=== PATIENT | female | born 2000 | race Caucasian/White ===

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

== ENCOUNTER → 2022-02-14 | Outpatient (CLI) | payer BC, MEDICAID ==
[~2022-02-14] MED LIST changes: -FOLI1TAB24 PO; +FOLI1TAB33 PO; -OLAN15TA19 PO; +OLAN15TA35 PO
--- NOTE | 2022-02-14 11:32 | Diagnostic Imaging Report ---
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 EXAM: MRI of the cervical spine without contrast. Sequences include sagittal T2, sagittal T1, sagittal T2 fat-sat, sagittal STIR, and axial T2. COMPARISON: None. FINDINGS: There is significant CSF flow and motion artifact, limiting evaluation of the cervical spinal cord on all sequences. Unable to exclude subtle abnormality of the cord given the artifact. There are no gross cord expansile changes seen. Limited visualization of the posterior fossa is unremarkable. Cervical spine has normal alignment with no acute fracture or dislocation. The vertebral body heights and intervertebral disk heights are maintained. There is no significant central canal or neural foramen narrowing. There is no significant paraspinal soft tissue abnormality. IMPRESSION: 1: There is significant limited evaluation of the cervical spinal cord and spine given the motion artifact and CSF flow artifact. Repeat MRI cervical spine imaging with and without contrast is suggested once the patient is able to hold still for the exam. Also comparison to prior imaging, if available, is suggested. 2: The remainder of the cervical spine is unremarkable, as visualized. Dictated by: Dictated on workstation # [id number]
== END ==
LOC: RAD 10:15
PROVIDERS: ATTEND Family Medicine
DX: D49.7 Neoplasm of unspecified behavior of endocrine glands and other parts of nervous system (principal)
CPT/HCPCS: 72141

== ENCOUNTER 2022-09-26 16:21 | Emergency (ER) | payer MEDICAID ==
[~2022-09-26] VITALS: Ht 165 cm; Wt 76.0 kg
--- NOTE | 2022-09-26 16:46 | ED Lower Extremity ---
General Chief Complaint: Laceration Stated Complaint: LEFT LEG LAC Nursing Triage Note: ARRIVED VIA AMB WITH A LACERATION TO LEFT LOWER LEG. STATES SHE HIT IT ON A BED FRAME. Source: patient Exam Limitations: no limitations History of Present Illness Date Seen by Provider: Sep 26, 2022 Time Seen by Provider: 16:44 Initial Comments Patient is a 22-year-old female presents ED with a laceration to her left lower leg. This occurred around 330 today. She states she cut her leg on her roommates bed frame. This resulted in a jagged 4 cm laceration. Bleeding controlled direct pressure. She reports some pain and discomfort with fatty tissue involvement. Not up-to-date on her tetanus. Caregiver at bedside. Denies distal numbness and tingling, fever, chills, nausea, vomiting Allergies and Home Medications Allergies Coded Allergies: divalproex sodium (Verified Allergy, Unknown, HIVES, 02/21/18) midazolam (Verified Allergy, Unknown, violent thrashing for 6 hours afterwards, 02/21/18) Patient Home Medication List Home Medication List Reviewed: Yes Cetirizine HCl (Cetirizine HCl) 10 Mg Tablet, 10 MG PO DAILY, (Reported) Entered as Reported by: TABITHA SCHERER on 02/21/18 1358 Clonidine HCl (Clonidine HCl) 0.1 Mg Tablet, 0.2 MG PO HS, (Reported) Entered as Reported by: TABITHA SCHERER on 02/21/18 1358 Docusate Sodium (Docusate Sodium) 100 Mg Capsule, 100 MG PO BID Prescribed by: FLORINA RODRIGUEZ on 02/26/181716 Folic Acid (Folic Acid) 1 Mg Tablet, 1 MG PO DAILY, (Reported) Entered as Reported by: TABITHA SCHERER on 02/21/18 1358 Hydrocodone Bit/Acetaminophen (Lortab 5 Mg Tablet) 1 Tab Tab, 1-2 TAB PO Q4H PRN for PAIN Prescribed by: FLORINA RODRIGUEZ on 02/26/181716 Hydroxyzine HCl (Hydroxyzine HCl) 50 Mg Tablet, 50 MG PO BID, (Reported) Entered as Reported by: TABITHA SCHERER on 02/21/18 1358 Ibuprofen (Ibu) 600 Mg Tablet, 600 MG PO Q6HR Prescribed by: FLORINA RODRIGUEZ on 9/12/18 1717 Olanzapine (Olanzapine) 15 Mg Tablet, 15 MG PO HS, (Reported) Entered as Reported by: TABITHA SCHERER on 02/21/18 1358 [place] 3 Polyunsat Fatty Acids (Fish Oil 1,000 mg Capsule) 1,000 Mg Cap, 1,000 MG PO HS, (Reported) Entered as Reported by: TABITHA SCHERER on 02/21/18 1358 Oxcarbazepine (Oxcarbazepine) 600 Mg Tablet, 600 MG PO BID, (Reported) Entered as Reported by: TABITHA SCHERER on 02/21/18 135 Promethazine HCl (Promethazine Tablet) 25 Mg Tablet, 25 MG PO Q6H PRN for NAUSEA/VOMITING Prescribed by: FLORINA RODRIGUEZ on 02/26/18 172 Risperidone (Risperdal) 1 Mg Tablet, 1 MG PO DAILY, (Reported) Entered as Reported by: TABITHA SCHERER on 02/21/18 1358 Review of Systems Constitutional: No chills, No diaphoresis, No malaise, No weakness EENTM: No ear pain, No blurred vision, No mouth pain, No mouth swelling Respiratory: No cough Cardiovascular: No chest pain Gastrointestinal: No abdominal pain, No diarrhea, No nausea, No vomiting Genitourinary: No decreased output, No discharge Musculoskeletal: muscle pain Skin: change in color, other (Left lower leg laceration) All Other Systems Reviewed Negative Unless Noted: Yes Past Qhtjfeg-Jxypxr-Oykuxi Hx Patient Social History Tobacco Use?: No Substance use?: No Alcohol Use?: No Immunizations Up To Date COVID19 Vaccine Cvicu Nurse: MTailorALEKSANDRA Seasonal Allergies Seasonal Allergies: Yes Past Medical History Surgeries: Yes (dental ) Respiratory: No Cardiac: No Neurological: Yes (for seizure meds for 5 yrs, neurofibromatosis) Last Menstrual Period: Sep 25, 2022 Genitourinary: No Gastrointestinal: No Musculoskeletal: No Endocrine: No HEENT: No Cancer: No Psychosocial: Yes ADD/ADHD, Anxiety, Personality Disorder Integumentary: No Blood Disorders: No Family Medical History Patient reports no known family medical history. Physical Exam Vital Signs Vital Signs - First Documented 09/26/22 16:30 Temp 36.5 Pulse 69 Resp 16 B/P (MAP) 127/75 (92) Capillary Refill : Height, Weight, BMI Height: 5'8.00" Weight: 195lbs. 0.0oz. [id number]; 27.00 BMI Method: General Appearance: WD/WN, no apparent distress HEENT: PERRL/EOMI, normal ENT inspection, TMs normal, pharynx normal Neck: non-tender, full range of motion, supple, normal inspection Cardiovascular: regular rate, rhythm, no edema, no gallop, no JVD Respiratory: chest non-tender, lungs clear, normal breath sounds, no respiratory distress, no accessory muscle use Gastrointestinal: normal bowel sounds, non tender, soft, no organomegaly Back: normal inspection, no CVA tenderness, no vertebral tenderness Legs: left leg other (For similar laceration to the left lower leg with adipose involvement.) Ankles: left ankle normal range of motion, left ankle other (4 cm jagged laceration above the left ankle anterior left lower leg. 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 Adipose involvement. No tendon involvement) Procedures/Interventions Wound Location: Lower Extremities Other Wound Location left lower leg Wound Length (cm): 4 Wound's Depth, Shape: superficial, sub Q Wound Explored: clean Irrigated w/ Saline (ccs): 200 Betadine Prep?: Yes Anesthesia: 1% Lidocaine Volume Anesthetic (ccs): 6 Wound Debrided: minimal Suture: Ethlion Suture Size: 4-0 Number of Sutures: 11 Layer Closure?: 1 Sterile Dressing Applied?: Yes Progress/Results/Core Measures Results/Orders My Orders Orders - ARGENIS FULTON Lidocaine 1% Inj 20 Ml (Xylocaine 1% Inj (09/26/22 17:05) Dipht,Pertuss(Acell),Tet Adult (Boostrix (09/26/22 17:30) Medications Given in ED Current Medications Medications Dose Ordered Sig/Aiden Route Start Time Stop Time Status Last Admin Dose Admin Lidocaine HCl 20 ml STK-MED ONCE .ROUTE 09/26/22 17:05 09/26/22 17:07 DC 09/26/22 17:18 20 ML Vital Signs/I&O 09/26/22 16:30 Temp 36.5 Pulse 69 Resp 16 B/P (MAP) 127/75 (92) Blood Pressure Mean: 92 Departure Communication (PCP) 4 cm jagged laceration to the left lower leg. Approximated tissue with eleven 4-0 Ethilon sutures. Extensive irrigation. No evidence of foreign body. Updated her tetanus shot here. Discussed Neosporin topical twice a day for the next 10 days. Remove sutures in 10 to 12 days. Okay to keep the area clean with soap and water. If any increasing pain, redness or swelling to return back to ED. No oral prophylactic antibiotics needed at this time. Patient was discussed with caregiver at bedside. They agree with plan of action Impression Primary Impression: Leg laceration Disposition: 01 HOME, SELF-CARE Condition: Stable Departure-Patient Inst. Decision time for Depature: 17:25 Referrals: NAVID BUTLER MD (PCP/Family) Primary Care Physician Patient Instructions: Laceration Repair With Stitches ED Add. Discharge Instructions: Remove sutures in 10 to 12 days. Neosporin topical twice a day. Okay to use soap and water. Return if symptoms worsen such as increased redness, swelling. All discharge instructions reviewed with patient and/or family. Voiced under standing. ARGENIS FULTON Sep 26, 2022 16:46
[2022-09-26] MEDS ORDERED: LIDOCAINE 1% INJ 20 ML VIAL ONE (17:05)
[2022-09-26] MEDS ORDERED: TETANUS,DIPTH,PERTUSS P/F (BOOSTRIX) 0.5 ML VIAL IM ONE (17:30)
[2022-09-26 18:04] VITALS: BP 124/76
== END 2022-09-26 18:04 | disposition home or self-care (01) ==
LOC: EDUNIT# 16:21 → ER 16:22
DX: S81.812A Laceration without foreign body, left lower leg, initial encounter (principal); Z23 Encounter for immunization; W26.8XXA Contact with other sharp object(s), not elsewhere classified, initial encounter; W22.8XXA Striking against or struck by other objects, initial encounter
CPT/HCPCS: 12032; 90715